=== PATIENT | female | born 1970 | race Caucasian/White ===

== ENCOUNTER 2017-04-05 18:02 | Inpatient (IN) | payer MEDICAID ==
[~2017-04-05] VITALS: Ht 157.5 cm; Wt 79.8 kg
[2017-04-05 18:08] VITALS: BP_SYST 147
[2017-04-05 19:54] LABS: HEMATOCRIT 34.8 % (36-48); HEMOGLOBIN 10.8 g/dL (12.0-16.0); MEAN CORPUSCULAR HEMOGLOBIN 24 pg (27-31); MEAN CORPUSCULAR HGB CONC 31 % (32-36); MEAN CORPUSCULAR VOLUME 76 fL (79.0-98.0); PLATELET COUNT (AUTO) 382 K/uL (130-430); RED BLOOD CELL COUNT(AUTO) 4.59 MIL/uL (4.2-6.2); RED CELL DISTRIBUTION WIDTH 19.3 % (9.0-15.0); WHITE BLOOD COUNT (AUTO) 26.9 K/uL (4.8-10.8)
[2017-04-05 20:17] LABS: ATYPICAL LYMPHOCYTES % 0 % (0-0); BAND % (MANUAL) 0 % (0-6); BASOPHILS % (MANUAL) 0 % (0-2); EOSINOPHILS % (MANUAL) 0 % (0-7); LYMPHOCYTES % (MANUAL) 7 % (20-46); MONOCYTES % (MANUAL) 3 % (0-11)
[2017-04-05 20:29] LABS: CALCIUM 8.5 mg/dL (8.4-11.0); CREATININE 0.75 mg/dL (0.55-1.30); POTASSIUM 3.3 mmol/L (3.5-5.1)
[2017-04-05 20:33] LABS: ALBUMIN 3.5 g/dL (3.4-4.8); TOTAL BILIRUBIN 2.8 mg/dL (0.0-1.0); TOTAL PROTEIN, SERUM 8.2 g/dL (6.4-8.3)
[2017-04-05 21:05] LABS: BILIRUBIN,URINE 1+ (NEGATIVE); BLOOD, URINE 3+ (NEGATIVE); CLARITY/URINE CLEAR (CLEAR); COLOR,URINE YELLOW (YELLOW); GLUCOSE,URINE NEGATIVE (NEGATIVE); KETONES,URINE 3+ (NEGATIVE); LEUKOCYTE ESTERASE ,URINE TRACE (NEGATIVE); NITRITE, URINE NEGATIVE (NEGATIVE); PROTEIN URINE 2+ (NEGATIVE)
[2017-04-05 21:13] LABS: BACTERIA,URINE FEW /HPF (None Seen); MUCUS,URINE None Seen /LPF (None Seen); RBC,URINE 50-80 /HPF (0-3); URINE AMORPHOUS URATE 2+ /HPF (None Seen)
[2017-04-05] MEDS ORDERED: NACL 0.9% 1,000 ML IV ONE ×2 (21:49→23:01)
[2017-04-05] MEDS ORDERED: DIPHENHYDRAMINE INJ 50 MG/ML VIAL IVP ONE (22:00)
[2017-04-05] MEDS ORDERED: MORPHINE 4 MG/ML INJ. SYRINGE IVP ONE (22:00)
[2017-04-05] MEDS ORDERED: ONDANSETRON HCL 4 MG/2 ML VIAL IVP ONE (22:00)
[2017-04-05] MEDS ORDERED: ACETAMINOPHEN 325 MG TABLET PO ONE (23:00)
[2017-04-05 23:36] VITALS: BP_SYST 117
[2017-04-06] VITALS (7 sets, daily range): BP systolic 92–137
[2017-04-06] MEDS ORDERED: ACET325T53 PO (00:02)
[2017-04-06] MEDS ORDERED: ONDA4TAB22 PO (00:02)
[2017-04-06] MEDS ORDERED: ACETAMINOPHEN 500 MG TABLET PO PRN ×2 (01:00→01:15)
[2017-04-06] MEDS ORDERED: PIPERACILLIN/TAZOBACTAM 3.375 GM/VIAL (ZOSYN) IV ONE (01:33)
[2017-04-06] MEDS: PIPERACILLIN/TAZO 3.375 GM in NS 50 ML IV SCH ×6 (01:41→18:01)
[2017-04-06] MEDS: D5NS 500 ML IV SCH ×5 (03:59→21:27)
[2017-04-06 07:12] LABS: BASOPHILS # (AUTO) 0.1 K/uL (0.0-0.2); BASOPHILS % (AUTO) 0.2 % (0.0-2.0); EOSINOPHILS % (AUTO) 0.1 % (0.0-4.0); HEMATOCRIT 30.2 % (36-48); HEMOGLOBIN 9.7 g/dL (12.0-16.0); LYMPHOCYTES # (AUTO) 0.8 K/uL (1.0-5.5); LYMPHOCYTES % (AUTO) 2.7 % (20.5-51.5); MEAN CORPUSCULAR HEMOGLOBIN 25 pg (27-31); MEAN CORPUSCULAR HGB CONC 32 % (32-36); MEAN CORPUSCULAR VOLUME 77 fL (79.0-98.0); MONOCYTES % (AUTO) 3.6 % (1.7-9.3); NEUTROPHILS # (AUTO) 27.1 K/uL (1.8-7.7); PLATELET COUNT (AUTO) 303 K/uL (130-430); RED BLOOD CELL COUNT(AUTO) 3.95 MIL/uL (4.2-6.2); RED CELL DISTRIBUTION WIDTH 19.5 % (9.0-15.0)
[2017-04-06 07:27] LABS: ALBUMIN 2.6 g/dL (3.4-4.8); CALCIUM 7.4 mg/dL (8.4-11.0); CREATININE 0.76 mg/dL (0.55-1.30); TOTAL BILIRUBIN 4.9 mg/dL (0.0-1.0); TOTAL PROTEIN, SERUM 6.4 g/dL (6.4-8.3)
[2017-04-06 07:37] LABS: NEUTROPHILS % (AUTO) 93.4 % (40.0-70.0)
[2017-04-06 07:53] LABS: POTASSIUM 2.4 mmol/L (3.5-5.1)
[2017-04-06] MEDS ORDERED: KCL 20 mEq in 100 mL (PREMIX) 100 ML IV ONE ×2 (08:15→10:15)
[2017-04-06] MEDS ORDERED: ACETAMINOPHEN 325 MG TABLET PO PRN (09:00)
[2017-04-06] MEDS ORDERED: LORazepam 2 MG/ML VIAL IVP PRN (09:00)
[2017-04-06] MEDS ORDERED: ZOLPIDEM TARTRATE 5 MG TABLET PO PRN (09:00)
[2017-04-06] MEDS ORDERED: MAGNESIUM SULFATE 50 ML IV PRN (09:00)
[2017-04-06] MEDS ORDERED: ONDANSETRON HCL 4 MG/2 ML VIAL IVP PRN (09:00)
[2017-04-06] MEDS ORDERED: MORPHINE 2 MG/ML INJ. SYRINGE IVP PRN (09:00)
[2017-04-06] MEDS ORDERED: DOCUSATE SODIUM 100 MG CAPSULE PO PRN (09:00)
[2017-04-06] MEDS: VANCOMYCIN HCL 750 MG in NS 250 ML IV SCH ×2 (10:42→21:25)
[2017-04-06] MEDS: MORPHINE 4 MG/ML INJ. SYRINGE IVP PRN ×2 (12:01→20:55)
[2017-04-06] MEDS: ONDANSETRON HCL 4 MG/2 ML VIAL IVP PRN (12:03)
[2017-04-07] MEDS: PIPERACILLIN/TAZO 3.375 GM in NS 50 ML IV SCH ×3 (00:37→12:49)
[2017-04-07] MEDS: D5NS 500 ML IV SCH ×4 (02:35→19:17)
[2017-04-07 04:01] VITALS: BP_SYST 129
[2017-04-07] MEDS: MORPHINE 4 MG/ML INJ. SYRINGE IVP PRN ×4 (04:56→20:01)
[2017-04-07 06:51] LABS: BASOPHILS # (AUTO) 0.1 K/uL (0.0-0.2); BASOPHILS % (AUTO) 0.8 % (0.0-2.0); EOSINOPHILS # (AUTO) 0.1 K/uL (0.0-0.4); EOSINOPHILS % (AUTO) 0.5 % (0.0-4.0); HEMATOCRIT 26.9 % (36-48); HEMOGLOBIN 8.3 g/dL (12.0-16.0); MEAN CORPUSCULAR HEMOGLOBIN 24 pg (27-31); MEAN CORPUSCULAR HGB CONC 31 % (32-36); MEAN CORPUSCULAR VOLUME 78 fL (79.0-98.0); MONOCYTES # (AUTO) 0.7 K/uL (0.0-1.0); MONOCYTES % (AUTO) 4.2 % (1.7-9.3); NEUTROPHILS # (AUTO) 13.6 K/uL (1.8-7.7); PLATELET COUNT (AUTO) 306 K/uL (130-430); RED BLOOD CELL COUNT(AUTO) 3.46 MIL/uL (4.2-6.2); RED CELL DISTRIBUTION WIDTH 19.1 % (9.0-15.0); WHITE BLOOD COUNT (AUTO) 16.5 K/uL (4.8-10.8)
[2017-04-07 07:05] LABS: CALCIUM 7.3 mg/dL (8.4-11.0); CREATININE 0.62 mg/dL (0.55-1.30)
[2017-04-07] MEDS ORDERED: POTASSIUM CHLORIDE 40 MEQ, LIDOCAINE JECT 2% PF 100 MG 50 MG in NS 250 ML IV ONE (08:45)
[2017-04-07 08:56] VITALS: BP_SYST 132
[2017-04-07] MEDS: VANCOMYCIN HCL 750 MG in NS 250 ML IV SCH ×2 (10:18→21:11)
[2017-04-07 11:03] LABS: NEUTROPHILS % (AUTO) 82.5 % (40.0-70.0)
[2017-04-07 13:01] VITALS: BP_SYST 115
[2017-04-07 17:00] VITALS: BP_SYST 126
[2017-04-07] MEDS: AMPICILLIN SODIUM 2 GM in NS 100 ML IV SCH ×2 (18:00→23:45)
[2017-04-07] MEDS: ONDANSETRON HCL 4 MG/2 ML VIAL IVP PRN (20:00)
[2017-04-07 20:25] VITALS: BP_SYST 132
[2017-04-07] MEDS ORDERED: AMPICILLIN SODIUM/SULBACTAM NA 3 GM VIAL ONE (22:00)
[2017-04-07] MEDS ORDERED: AMPICILLIN SODIUM 1 GM VIAL ONE (22:21)
[2017-04-08] VITALS (8 sets, daily range): BP systolic 129–172
[2017-04-08] MEDS: D5NS 500 ML IV SCH ×5 (02:00→21:44)
[2017-04-08] MEDS: MORPHINE 4 MG/ML INJ. SYRINGE IVP PRN ×2 (02:00→08:04)
[2017-04-08] MEDS: AMPICILLIN SODIUM 2 GM in NS 100 ML IV SCH ×3 (06:39→17:41)
[2017-04-08 06:52] LABS: BASOPHILS # (AUTO) 0.1 K/uL (0.0-0.2); BASOPHILS % (AUTO) 0.8 % (0.0-2.0); EOSINOPHILS # (AUTO) 0.1 K/uL (0.0-0.4); EOSINOPHILS % (AUTO) 0.7 % (0.0-4.0); HEMATOCRIT 26.7 % (36-48); HEMOGLOBIN 8.3 g/dL (12.0-16.0); LYMPHOCYTES # (AUTO) 1.7 K/uL (1.0-5.5); LYMPHOCYTES % (AUTO) 18.5 % (20.5-51.5); MEAN CORPUSCULAR HEMOGLOBIN 24 pg (27-31); MEAN CORPUSCULAR HGB CONC 31 % (32-36); MEAN CORPUSCULAR VOLUME 77 fL (79.0-98.0); MONOCYTES # (AUTO) 0.5 K/uL (0.0-1.0); MONOCYTES % (AUTO) 5.9 % (1.7-9.3); NEUTROPHILS # (AUTO) 6.8 K/uL (1.8-7.7); NEUTROPHILS % (AUTO) 74.1 % (40.0-70.0); PLATELET COUNT (AUTO) 337 K/uL (130-430); RED BLOOD CELL COUNT(AUTO) 3.46 MIL/uL (4.2-6.2); RED CELL DISTRIBUTION WIDTH 20.3 % (9.0-15.0); WHITE BLOOD COUNT (AUTO) 9.2 K/uL (4.8-10.8)
[2017-04-08 07:01] LABS: CALCIUM 7.4 mg/dL (8.4-11.0); CREATININE 0.65 mg/dL (0.55-1.30); POTASSIUM 3.2 mmol/L (3.5-5.1)
[2017-04-08 07:41] LABS: PROTHROMBIN TIME 11.3 SECS (9.5-12.5)
[2017-04-08] MEDS ORDERED: POTASSIUM CHLORIDE 40 MEQ, LIDOCAINE JECT 2% PF 100 MG 50 MG in NS 250 ML IV ONE (08:45)
[2017-04-08 10:17] LABS: ALBUMIN 2.4 g/dL (3.4-4.8); BILIRUBIN,DIRECT 1.7 mg/dL (0.0-0.3); TOTAL PROTEIN, SERUM 6.2 g/dL (6.4-8.3)
[2017-04-08] MEDS: VANCOMYCIN HCL 750 MG in NS 250 ML IV SCH ×2 (11:26→21:43)
[2017-04-08] MEDS ORDERED: KETOROLAC TROMETHAMINE 30 MG VIAL IVP ONE (13:45)
[2017-04-08] MEDS ORDERED: fentaNYL CITRATE 250 MCG/5 ML AMP IV ONE (13:45)
[2017-04-08] MEDS ORDERED: SUCCINYLCHOLINE CHLORIDE 20 MG/ML(QUELICIN) IVP ONE (13:45)
[2017-04-08] MEDS ORDERED: DEXAMETHASONE SOD PHOSPHATE 4 MG/ML VIAL IVP ONE (13:45)
[2017-04-08] MEDS ORDERED: ONDANSETRON HCL 4 MG/2 ML VIAL IVP ONE (13:45)
[2017-04-08] MEDS ORDERED: PROPOFOL 200MG/ 20ML VIAL (DIPRIVAN) IV ONE (13:45)
[2017-04-08] MEDS ORDERED: SEVOFLURANE 15 MIN GAS INH ONE (13:45)
[2017-04-08] MEDS ORDERED: ROCURONIUM BROMIDE 10 MG/ML (ZEMURON) IV ONE (13:45)
[2017-04-08] MEDS ORDERED: IOHEXOL 50 ML IV ONE (13:50)
[2017-04-08] MEDS ORDERED: LR 1,000 ML IV SCH (14:53)
[2017-04-08] MEDS ORDERED: HYDROmorphone 1 MG INJ. 1 MG/ML AMPUL IVP PRN (15:00)
[2017-04-08] MEDS ORDERED: HYDROmorphone 2 MG/ML VIAL IVP PRN ×2 (15:00)
[2017-04-08] MEDS ORDERED: MEPERIDINE HCL/PF 25 MG/ML DISP.SYRIN IVP PRN (15:00)
[2017-04-09] VITALS: BP_SYST 155
[2017-04-09] MEDS: AMPICILLIN SODIUM 2 GM in NS 100 ML IV SCH ×4 (00:14→17:35)
[2017-04-09 04:59] VITALS: BP_SYST 151
[2017-04-09] MEDS: D5NS 500 ML IV SCH ×4 (05:48→22:28)
[2017-04-09 07:40] LABS: ALBUMIN 2.4 g/dL (3.4-4.8); CALCIUM 7.7 mg/dL (8.4-11.0); CREATININE 0.6 mg/dL (0.55-1.30); POTASSIUM 3.3 mmol/L (3.5-5.1); TOTAL BILIRUBIN 1.3 mg/dL (0.0-1.0); TOTAL PROTEIN, SERUM 6.2 g/dL (6.4-8.3)
[2017-04-09 08:00] VITALS: BP_SYST 130
[2017-04-09 08:13] LABS: HEMATOCRIT 26.2 % (36-48); HEMOGLOBIN 8.2 g/dL (12.0-16.0); MEAN CORPUSCULAR HEMOGLOBIN 24 pg (27-31); MEAN CORPUSCULAR HGB CONC 31 % (32-36); MEAN CORPUSCULAR VOLUME 76 fL (79.0-98.0); PLATELET COUNT (AUTO) 340 K/uL (130-430); RED BLOOD CELL COUNT(AUTO) 3.44 MIL/uL (4.2-6.2); RED CELL DISTRIBUTION WIDTH 20.1 % (9.0-15.0); WHITE BLOOD COUNT (AUTO) 7.9 K/uL (4.8-10.8)
[2017-04-09] MEDS ORDERED: POTASSIUM CHLORIDE 40 MEQ, LIDOCAINE JECT 2% PF 100 MG 50 MG in NS 250 ML IV PRN (08:45)
[2017-04-09 09:46] LABS: ATYPICAL LYMPHOCYTES % 0 % (0-0); BAND % (MANUAL) 3 % (0-6); EOSINOPHILS % (MANUAL) 2 % (0-7); LYMPHOCYTES % (MANUAL) 18 % (20-46); MONOCYTES % (MANUAL) 6 % (0-11)
[2017-04-09 09:52] LABS: BASOPHILS % (MANUAL) 0 % (0-2)
[2017-04-09] MEDS: VANCOMYCIN HCL 750 MG in NS 250 ML IV SCH (11:05)
[2017-04-09] MEDS: POTASSIUM CHLORIDE 10 MEQ TAB.PRT.SR PO PRN (11:07)
[2017-04-09 12:38] VITALS: BP_SYST 136
[2017-04-09 16:45] VITALS: BP_SYST 132
[2017-04-09] MEDS: VANCOMYCIN HCL 1,000 MG in NS 250 ML IV SCH (19:14)
[2017-04-09 20:37] VITALS: BP_SYST 132
[2017-04-10] MEDS: AMPICILLIN SODIUM 2 GM in NS 100 ML IV SCH ×4 (00:22→17:38)
[2017-04-10 01:20] VITALS: BP_SYST 138
[2017-04-10] MEDS: VANCOMYCIN HCL 1,000 MG in NS 250 ML IV SCH ×3 (02:57→20:23)
[2017-04-10] MEDS: D5NS 500 ML IV SCH ×4 (05:47→20:23)
[2017-04-10 06:06] VITALS: BP_SYST 154
[2017-04-10 07:44] LABS: HEMATOCRIT 28.4 % (36-48); HEMOGLOBIN 8.6 g/dL (12.0-16.0); MEAN CORPUSCULAR HEMOGLOBIN 23 pg (27-31); MEAN CORPUSCULAR HGB CONC 31 % (32-36); MEAN CORPUSCULAR VOLUME 77 fL (79.0-98.0); PLATELET COUNT (AUTO) 363 K/uL (130-430); RED CELL DISTRIBUTION WIDTH 20.1 % (9.0-15.0); WHITE BLOOD COUNT (AUTO) 8.1 K/uL (4.8-10.8)
[2017-04-10 08:00] VITALS: BP_SYST 133; BP_SYST 183
[2017-04-10 08:08] LABS: CALCIUM 7.9 mg/dL (8.4-11.0); CREATININE 0.52 mg/dL (0.55-1.30); POTASSIUM 3.3 mmol/L (3.5-5.1)
[2017-04-10 09:11] LABS: ATYPICAL LYMPHOCYTES % 0 % (0-0); BAND % (MANUAL) 0 % (0-6); BASOPHILS % (MANUAL) 1 % (0-2); EOSINOPHILS % (MANUAL) 2 % (0-7); LYMPHOCYTES % (MANUAL) 28 % (20-46); MONOCYTES % (MANUAL) 5 % (0-11)
[2017-04-10] MEDS: POTASSIUM CHLORIDE 10 MEQ TAB.PRT.SR PO PRN (12:08)
[2017-04-10 12:38] VITALS: BP_SYST 159
[2017-04-10 13:26] LABS: ALBUMIN 2.6 g/dL (3.4-4.8); BILIRUBIN,DIRECT 0.8 mg/dL (0.0-0.3); TOTAL BILIRUBIN 1.1 mg/dL (0.0-1.0); TOTAL PROTEIN, SERUM 6.5 g/dL (6.4-8.3)
[2017-04-10 16:31] VITALS: BP_SYST 147
[2017-04-10 20:40] VITALS: BP_SYST 147
[2017-04-11 00:50] VITALS: BP_SYST 150
[2017-04-11] MEDS: AMPICILLIN SODIUM 2 GM in NS 100 ML IV SCH ×5 (00:57→23:56)
[2017-04-11] MEDS: D5NS 500 ML IV SCH ×5 (01:13→23:57)
[2017-04-11] MEDS: VANCOMYCIN HCL 1,000 MG in NS 250 ML IV SCH ×3 (03:48→20:56)
[2017-04-11 04:00] VITALS: BP_SYST 138
[2017-04-11 06:55] LABS: BASOPHILS # (AUTO) 0.1 K/uL (0.0-0.2); BASOPHILS % (AUTO) 0.9 % (0.0-2.0); EOSINOPHILS # (AUTO) 0.1 K/uL (0.0-0.4); EOSINOPHILS % (AUTO) 1.7 % (0.0-4.0); HEMATOCRIT 30.3 % (36-48); LYMPHOCYTES % (AUTO) 24.1 % (20.5-51.5); MEAN CORPUSCULAR HEMOGLOBIN 25 pg (27-31); MEAN CORPUSCULAR HGB CONC 32 % (32-36); MEAN CORPUSCULAR VOLUME 76 fL (79.0-98.0); MONOCYTES # (AUTO) 0.9 K/uL (0.0-1.0); MONOCYTES % (AUTO) 10.8 % (1.7-9.3); NEUTROPHILS # (AUTO) 5.4 K/uL (1.8-7.7); NEUTROPHILS % (AUTO) 62.5 % (40.0-70.0); RED BLOOD CELL COUNT(AUTO) 3.97 MIL/uL (4.2-6.2); RED CELL DISTRIBUTION WIDTH 19.8 % (9.0-15.0); WHITE BLOOD COUNT (AUTO) 8.5 K/uL (4.8-10.8)
[2017-04-11 07:10] LABS: CALCIUM 8.2 mg/dL (8.4-11.0); CREATININE 0.59 mg/dL (0.55-1.30); POTASSIUM 3.5 mmol/L (3.5-5.1)
[2017-04-11 07:12] LABS: HEMOGLOBIN 9.8 g/dL (12.0-16.0)
[2017-04-11 07:20] LABS: ALBUMIN 2.7 g/dL (3.4-4.8); TOTAL PROTEIN, SERUM 6.9 g/dL (6.4-8.3)
[2017-04-11 08:11] VITALS: BP_SYST 143
[2017-04-11 08:44] LABS: PLATELET COUNT (AUTO) 382 K/uL (130-430)
[2017-04-11 12:12] VITALS: BP_SYST 144
[2017-04-11 16:09] VITALS: BP_SYST 150
[2017-04-11 20:35] VITALS: BP_SYST 146
[2017-04-12] VITALS (9 sets, daily range): BP systolic 106–138
[2017-04-12] MEDS: VANCOMYCIN HCL 1,000 MG in NS 250 ML IV SCH ×3 (03:56→17:32)
[2017-04-12] MEDS: AMPICILLIN SODIUM 2 GM in NS 100 ML IV SCH ×3 (05:42→17:30)
[2017-04-12] MEDS: D5NS 500 ML IV SCH ×4 (05:42→21:45)
[2017-04-12 06:52] LABS: BASOPHILS # (AUTO) 0.1 K/uL (0.0-0.2); BASOPHILS % (AUTO) 0.7 % (0.0-2.0); EOSINOPHILS # (AUTO) 0.1 K/uL (0.0-0.4); EOSINOPHILS % (AUTO) 0.8 % (0.0-4.0); HEMATOCRIT 37.3 % (36-48); HEMOGLOBIN 11.5 g/dL (12.0-16.0); LYMPHOCYTES # (AUTO) 1.4 K/uL (1.0-5.5); MEAN CORPUSCULAR HEMOGLOBIN 24 pg (27-31); MEAN CORPUSCULAR HGB CONC 31 % (32-36); MEAN CORPUSCULAR VOLUME 77 fL (79.0-98.0); MONOCYTES # (AUTO) 0.8 K/uL (0.0-1.0); MONOCYTES % (AUTO) 9.6 % (1.7-9.3); NEUTROPHILS # (AUTO) 5.8 K/uL (1.8-7.7); NEUTROPHILS % (AUTO) 71.9 % (40.0-70.0); RED BLOOD CELL COUNT(AUTO) 4.84 MIL/uL (4.2-6.2); RED CELL DISTRIBUTION WIDTH 19.8 % (9.0-15.0)
[2017-04-12 07:01] LABS: WHITE BLOOD COUNT (AUTO) 8.2 K/uL (4.8-10.8)
[2017-04-12 07:07] LABS: ALBUMIN 3.1 g/dL (3.4-4.8); CALCIUM 8.7 mg/dL (8.4-11.0); CREATININE 0.6 mg/dL (0.55-1.30); POTASSIUM 3.2 mmol/L (3.5-5.1); TOTAL PROTEIN, SERUM 7.9 g/dL (6.4-8.3)
[2017-04-12 07:26] LABS: PLATELET COUNT (AUTO) 550 K/uL (130-430)
[2017-04-13] MEDS: AMPICILLIN SODIUM 2 GM in NS 100 ML IV SCH ×4 (00:51→17:19)
[2017-04-13] MEDS: VANCOMYCIN HCL 1,000 MG in NS 250 ML IV SCH ×3 (02:56→18:57)
[2017-04-13] MEDS: D5NS 500 ML IV SCH (02:57)
[2017-04-13 04:00] VITALS: BP_SYST 123
[2017-04-13 07:05] LABS: BASOPHILS # (AUTO) 0.1 K/uL (0.0-0.2); BASOPHILS % (AUTO) 0.7 % (0.0-2.0); EOSINOPHILS % (AUTO) 0.5 % (0.0-4.0); HEMOGLOBIN 10.4 g/dL (12.0-16.0); LYMPHOCYTES # (AUTO) 2.1 K/uL (1.0-5.5); MEAN CORPUSCULAR HEMOGLOBIN 24 pg (27-31); MEAN CORPUSCULAR HGB CONC 31 % (32-36); MEAN CORPUSCULAR VOLUME 76 fL (79.0-98.0); MONOCYTES # (AUTO) 0.9 K/uL (0.0-1.0); MONOCYTES % (AUTO) 10.3 % (1.7-9.3); NEUTROPHILS # (AUTO) 5.8 K/uL (1.8-7.7); NEUTROPHILS % (AUTO) 64.5 % (40.0-70.0); RED BLOOD CELL COUNT(AUTO) 4.32 MIL/uL (4.2-6.2); RED CELL DISTRIBUTION WIDTH 20.2 % (9.0-15.0); WHITE BLOOD COUNT (AUTO) 8.9 K/uL (4.8-10.8)
[2017-04-13 07:25] LABS: ALBUMIN 2.7 g/dL (3.4-4.8); BILIRUBIN,DIRECT 0.5 mg/dL (0.0-0.3); CALCIUM 8.2 mg/dL (8.4-11.0); CREATININE 0.59 mg/dL (0.55-1.30); POTASSIUM 3.4 mmol/L (3.5-5.1); TOTAL BILIRUBIN 0.9 mg/dL (0.0-1.0)
[2017-04-13 08:33] VITALS: BP_SYST 117
[2017-04-13 08:59] LABS: PLATELET COUNT (AUTO) 514 K/uL (130-430)
[2017-04-13] MEDS: POTASSIUM CHLORIDE 10 MEQ TAB.PRT.SR PO PRN (10:15)
[2017-04-13 12:58] VITALS: BP_SYST 120
[2017-04-13 16:35] VITALS: BP_SYST 124
[2017-04-13] MEDS: D5NS 1,000 ML IV SCH (19:06)
[2017-04-14] VITALS (7 sets, daily range): BP systolic 118–143
[2017-04-14] MEDS: AMPICILLIN SODIUM 2 GM in NS 100 ML IV SCH ×4 (00:19→18:12)
[2017-04-14] MEDS: VANCOMYCIN HCL 1,000 MG in NS 250 ML IV SCH ×3 (02:58→18:58)
[2017-04-14 06:56] LABS: BASOPHILS % (AUTO) 0.5 % (0.0-2.0); EOSINOPHILS # (AUTO) 0.1 K/uL (0.0-0.4); EOSINOPHILS % (AUTO) 1.9 % (0.0-4.0); HEMATOCRIT 30.8 % (36-48); HEMOGLOBIN 9.7 g/dL (12.0-16.0); LYMPHOCYTES # (AUTO) 2.1 K/uL (1.0-5.5); LYMPHOCYTES % (AUTO) 29.2 % (20.5-51.5); MEAN CORPUSCULAR HEMOGLOBIN 24 pg (27-31); MEAN CORPUSCULAR HGB CONC 32 % (32-36); MEAN CORPUSCULAR VOLUME 77 fL (79.0-98.0); MONOCYTES # (AUTO) 0.7 K/uL (0.0-1.0); MONOCYTES % (AUTO) 9.3 % (1.7-9.3); NEUTROPHILS # (AUTO) 4.3 K/uL (1.8-7.7); NEUTROPHILS % (AUTO) 59.1 % (40.0-70.0); PLATELET COUNT (AUTO) 537 K/uL (130-430); RED BLOOD CELL COUNT(AUTO) 4.01 MIL/uL (4.2-6.2); RED CELL DISTRIBUTION WIDTH 20.8 % (9.0-15.0); WHITE BLOOD COUNT (AUTO) 7.2 K/uL (4.8-10.8)
[2017-04-14 07:00] LABS: CALCIUM 8.3 mg/dL (8.4-11.0); CREATININE 0.58 mg/dL (0.55-1.30); POTASSIUM 3.7 mmol/L (3.5-5.1)
[2017-04-14] MEDS: D5NS 1,000 ML IV SCH ×2 (09:38→18:12)
[2017-04-14] MEDS ORDERED: ROCURONIUM BROMIDE 10 MG/ML (ZEMURON) IV ONE (13:42)
[2017-04-14] MEDS ORDERED: METOCLOPRAMIDE HCL 10 MG/2 ML VIAL IVP ONE (13:42)
[2017-04-14] MEDS ORDERED: DEXAMETHASONE SOD PHOSPHATE 4 MG/ML VIAL IVP ONE (13:42)
[2017-04-14] MEDS ORDERED: GLYCOPYRROLATE 0.2 MG/ML VIAL IJ ONE (13:42)
[2017-04-14] MEDS ORDERED: fentaNYL CITRATE/PF 100 MCG/2 ML AMP IVP ONE (13:42)
[2017-04-14] MEDS ORDERED: NS 1000 ML BAG IV ONE (13:42)
[2017-04-14] MEDS ORDERED: KETOROLAC TROMETHAMINE 30 MG VIAL IVP ONE (13:42)
[2017-04-14] MEDS ORDERED: PROPOFOL 200MG/ 20ML VIAL (DIPRIVAN) IV ONE (13:42)
[2017-04-14] MEDS ORDERED: MIDAZOLAM HCL 5 MG/5 ML VIAL IVP ONE (13:42)
[2017-04-14] MEDS ORDERED: BUPIVACAINE /EPINEPHRINE/PF 0.25% 30 ML VIAL INJ ONE (13:42)
[2017-04-14] MEDS ORDERED: SEVOFLURANE 15 MIN GAS INH ONE (13:42)
[2017-04-14] MEDS ORDERED: LR 1,000 ML IV.SOLN IV ONE (13:42)
[2017-04-14] MEDS ORDERED: LR 1,000 ML IV ONE (14:32)
[2017-04-14] MEDS ORDERED: KETOROLAC TROMETHAMINE 30 MG VIAL IM PRN (14:45)
[2017-04-14] MEDS ORDERED: ONDANSETRON HCL 4 MG/2 ML VIAL IVP PRN ×2 (14:45)
[2017-04-14] MEDS ORDERED: NALOXONE HCL 0.4 MG/ML AMP (NARCAN) IVP PRN (14:45)
[2017-04-14] MEDS ORDERED: DIPHENHYDRAMINE INJ 50 MG/ML VIAL IVP PRN (14:45)
[2017-04-14] MEDS ORDERED: NALBUPHINE HCL 10 MG/ML AMP IVP PRN (14:45)
[2017-04-14] MEDS ORDERED: ePHEDrine sulfate 50 MG/ML VIAL IVP PRN (14:45)
[2017-04-14] MEDS ORDERED: fentaNYL CITRATE/PF 100 MCG/2 ML AMP IVP PRN (14:45)
[2017-04-14] MEDS: MORPHINE 4 MG/ML INJ. SYRINGE IVP PRN (22:20)
[2017-04-15] MEDS: AMPICILLIN SODIUM 2 GM in NS 100 ML IV SCH ×3 (00:13→11:15)
[2017-04-15 01:03] VITALS: BP_SYST 119
[2017-04-15] MEDS: VANCOMYCIN HCL 1,000 MG in NS 250 ML IV SCH ×2 (02:35→11:16)
[2017-04-15] MEDS: MORPHINE 4 MG/ML INJ. SYRINGE IVP PRN ×2 (03:14→08:55)
[2017-04-15 04:50] VITALS: BP_SYST 129
[2017-04-15] MEDS: D5NS 1,000 ML IV SCH (05:27)
[2017-04-15 07:41] LABS: CALCIUM 8.4 mg/dL (8.4-11.0); CREATININE 0.42 mg/dL (0.55-1.30); POTASSIUM 3.6 mmol/L (3.5-5.1)
[2017-04-15 07:42] LABS: BASOPHILS % (AUTO) 0.2 % (0.0-2.0); EOSINOPHILS % (AUTO) 0.1 % (0.0-4.0); HEMATOCRIT 29.9 % (36-48); HEMOGLOBIN 9.4 g/dL (12.0-16.0); LYMPHOCYTES # (AUTO) 1.8 K/uL (1.0-5.5); LYMPHOCYTES % (AUTO) 14.2 % (20.5-51.5); MEAN CORPUSCULAR HEMOGLOBIN 24 pg (27-31); MEAN CORPUSCULAR HGB CONC 31 % (32-36); MEAN CORPUSCULAR VOLUME 77 fL (79.0-98.0); MONOCYTES # (AUTO) 0.9 K/uL (0.0-1.0); MONOCYTES % (AUTO) 7.5 % (1.7-9.3); NEUTROPHILS # (AUTO) 9.8 K/uL (1.8-7.7); RED BLOOD CELL COUNT(AUTO) 3.88 MIL/uL (4.2-6.2); RED CELL DISTRIBUTION WIDTH 20.5 % (9.0-15.0); WHITE BLOOD COUNT (AUTO) 12.5 K/uL (4.8-10.8)
[2017-04-15 08:00] VITALS: BP_SYST 140
[2017-04-15 08:21] LABS: PLATELET COUNT (AUTO) 547 K/uL (130-430)
[2017-04-15 08:45] LABS: BILIRUBIN,DIRECT 0.5 mg/dL (0.0-0.3); TOTAL BILIRUBIN 0.7 mg/dL (0.0-1.0)
[2017-04-15 08:46] LABS: ALBUMIN 2.8 g/dL (3.4-4.8)
[2017-04-15] MEDS ORDERED: HYDR-4100 PO (12:15)
[2017-04-15] MEDS ORDERED: CLIN-77 PO (12:16)
[2017-04-15 12:26] VITALS: BP_SYST 142
[2017-04-15 12:49] VITALS: BP_SYST 126
== END 2017-04-15 16:30 | disposition home health service (06) | DRG 710 ==
LOC: SED 18:02 → SMU 22:41
PROVIDERS: ADMIT General Practice; ATTEND General Practice
PROC: 0FC98ZZ Extirpation of Matter from Common Bile Duct, Via Natural or Artificial Opening Endoscopic (ICD-10-PCS; 2017-04-08)
PROC: 041 Lower Arteries, Bypass (ICD-10-PCS; principal; 2017-04-11)
PROC: 05JYXZZ Inspection of Upper Vein, External Approach (ICD-10-PCS; 2017-04-11)
PROC: 0FT44ZZ Resection of Gallbladder, Percutaneous Endoscopic Approach (ICD-10-PCS; 2017-04-14)
DX: A40.8 Other streptococcal sepsis (principal); K85.10 Biliary acute pancreatitis without necrosis or infection; E44.0 Moderate protein-calorie malnutrition; N18.6 End stage renal disease; E87.6 Hypokalemia; K66.0 Peritoneal adhesions (postprocedural) (postinfection); K74.60 Unspecified cirrhosis of liver; K80.43 Calculus of bile duct with acute cholecystitis with obstruction; Z68.32 Body mass index [BMI] 32.0-32.9, adult; Z79.899 Other long term (current) drug therapy
CPT/HCPCS: 36415; 74181; 76000; 80048; 80053; 80076; 80202-TC; 81000-TC; 83605; 83690-TC; 83735-TC; 84702-TC; 84703; 85007; 85025; 85027; 85610-TC; 86886; 86900; 86901; 87040-TC; 87070; 87070-TC; 87075-TC; 87081; 87186-TC; 88304; 94010; 94760; 96374; 96375; 99285; C1727; C1769; J0290; J0295; J0330; J1100; J1200; J1885; J2250; J2270; J2405; J2543; J2704; J2765; J3010; J3370; J3480; J3490; J7030; J7042; J7050; J7120; Q9967